=== PATIENT | male | born 1940 | race Two or more races ===

== ENCOUNTER 2019-11-18 16:11 | Emergency (ER) | payer MEDICAID ==
[~2019-11-18] VITALS: Ht 165.1 cm; Wt 83.0 kg
[2019-11-18 16:24] VITALS: BP 170/80
[2019-11-18] MEDS ORDERED: azithromycin 250mg tablet PO ONE (17:05)
[2019-11-18] MEDS ORDERED: benzonatate 100mg capsule PO ONE (17:05)
[2019-11-18] MEDS ORDERED: AZIT250T83 PO (17:18)
[2019-11-18] MEDS ORDERED: BENZ-16 PO (17:18)
== END 2019-11-18 17:46 | disposition home or self-care (01) ==
LOC: ER 16:11 → EDBD 16:11 → ER 17:46
DX: J20.9 Acute bronchitis, unspecified (principal); I10 Essential (primary) hypertension
CPT/HCPCS: 71045; 99283